=== PATIENT | female | born 1960 | race Caucasian/White ===

== ENCOUNTER 2024-04-01 11:40 | Day surgery (SDC) | payer MEDICARE, OTHER ==
[~2024-04-01] VITALS: Ht 162.6 cm; Wt 61.1 kg
[2024-04-01] VITALS (15 sets, daily range): BP systolic 87–106; BP diastolic 37–54; PULSE 72–94; TEMP 98.1–98.2
[~2024-04-01 11:40] MED LIST: COSOPT 2%-0.5%10 ML OU; FLOMAX 0.40.4 MG/CAP PO; KLOR-CON SPRIN10 MEQ PO; TOPROL XL 50MG50 MG PO
[2024-04-01] MEDS ORDERED: MAXZIDE-25MG TA1 TAB PO (12:53)
[2024-04-01] MEDS ORDERED: LR 1,000 ML IV ONE (13:15)
--- NOTE | 2024-04-01 13:45 | NUR ---
Patient admitted from [facility], via self arrival. Her spouse at her side. Admission completed. rounded, plan of care reviewed. Consent obtained. Pre op check list completed. Zosyn as ordered. LR to gravity. aware of low blood pressure. Patient to OR with Isabel, will await his return
[2024-04-01] MEDS ORDERED: fentaNYL 50 MCG/ML 5 ML VIAL ONE (13:49)
[2024-04-01] MEDS ORDERED: Lidocaine PF 2% (20 MG/ML) 5 ML VIAL ONE (13:49)
[2024-04-01] MEDS ORDERED: Rocuronium 50 MG/5 ML Multi-Dose VIAL ONE (13:49)
[2024-04-01] MEDS ORDERED: Naloxone 0.4 MG/ML VIAL IV PRN (14:00)
[2024-04-01] MEDS ORDERED: Ondansetron 4 MG/2 ML VIAL IV PRN ×2 (14:00→14:15)
[2024-04-01] MEDS ORDERED: oxyCODONE 5 MG TAB PO PRN (14:00)
[2024-04-01] MEDS ORDERED: Ondansetron 4 MG/2 ML VIAL ONE (14:10)
[2024-04-01] MEDS ORDERED: dexAMETHasone 10 MG/ML VIAL ONE (14:10)
[2024-04-01] MEDS ORDERED: droPERidol 2.5 MG/ML 2 ML VIAL IV PRN (14:15)
[2024-04-01] MEDS ORDERED: Morphine 2 MG/1 ML VIAL [PACU/SDC ONLY] IV PRN (14:15)
[2024-04-01] MEDS ORDERED: HYDROmorphone 1 MG/1 ML SYRINGE [PACU/SDC ONLY] IV PRN (14:15)
[2024-04-01] MEDS ORDERED: fentaNYL 50 MCG/ML 1 ML SYRINGE/VIAL [PACU/SDC ONLY] IV PRN (14:15)
[2024-04-01] MEDS ORDERED: Meperidine 50 MG/ML 1 ML VIAL IV PRN (14:15)
[2024-04-01] MEDS ORDERED: Phenylephrine 10 MG/ML VIAL ONE (14:17)
[2024-04-01] MEDS ORDERED: Acetaminophen 500 MG TAB PO SCH (14:54)
[2024-04-01] MEDS ORDERED: Neostigmine 1 MG/ML 10 ML Multi-Dose Vial ONE (14:56)
[2024-04-01] MEDS ORDERED: Glycopyrrolate 0.2 MG/ML 1 ML VIAL ONE (14:56)
--- NOTE | 2024-04-01 18:00 | NUR ---
Patient has rested soundly post op. Awake and alert now. Initally nauseated, but able to tolerate dinner without nausea. Minimal reports of pain. Vss on room air. Lap sites x3 bandaids intact. Not yet voided, no urge at this time. PO intake encouraged. Scds ble. Her at bedside. Will monitor.
--- NOTE | 2024-04-01 19:55 | NUR ---
Patient assessed at this time, see shift assessment, reports minimal pain, PS of 1/10, with IV infusing well on right wrist, has not pass any gas yet, denies further needs, encouraged ambulation, denies further needs, call light and personal items within reach, will continue to monitor.
[2024-04-01] MEDS ORDERED: Dorzolamide/Timolol 2-0.5% Ophth Soln 10 ML BOTTLE OP SCH (21:00)
[2024-04-02 00:37] VITALS: BP_SYST 93
[2024-04-02 03:46] VITALS: BP 93/54; PULSE 66; TEMP 98
[2024-04-02 04:06] VITALS: BP_SYST 93
[2024-04-02 07:59] VITALS: BP 100/60; PULSE 73; TEMP 97.8
--- NOTE | 2024-04-02 09:00 | NUR ---
pt a&ox4 resting in bed. vss. pt reports mild cramping to RLQ. tolerated breakfast without nausea. x3 lap sites are cdi w bandaids. scds to ble. INT to right wrist patent. pt denies needs at this time. call light in reach.
[2024-04-02 09:47] VITALS: BP_SYST 100
[2024-04-02] MEDS ORDERED: NORCO 325 MG-51 TAB PO (10:02)
--- NOTE | 2024-04-02 10:29 | NUR ---
INT discontinued, catheter intact. discharge instructions given to pt, all questions answered. pt waiting for to be escorted out for discharge.
--- NOTE | 2024-04-02 10:58 | NUR ---
pt escorted to personal vehicle with PCT.
== END 2024-04-02 10:50 | disposition home or self-care (01) ==
LOC: SDCO 11:40 → SURG 11:40 → EDSTATUS 16:01 → SDCO 04-02 10:50 → SURG 04-02 10:50
DX: K35.891 Other acute appendicitis without perforation, with gangrene (principal); K38.1 Appendicular concretions
CPT/HCPCS: OP; G0378; G0379; J1100; J2371; J2405; J2543; J2704; J2710; J3010; J7120